=== PATIENT | female | born 1995 | race Caucasian/White ===

== ENCOUNTER 2018-06-11 15:13 | Outpatient (CLI) | payer OTHER ==
--- NOTE | 2018-06-12 08:10 | MRI ---
MR CHEST WITH AND WITHOUT CONTRAST: INDICATION: Injury to the left brachial plexus. TECHNIQUE: Multiplanar multisequence MR images were obtained of the upper left torso in the region of the brachi al plexus with and without contrast. Patient received 13 cc of MultiHance for the examination. Comparison is made with the prior exam dated 01/14/2016. FINDINGS: There is postsurgical change of a left first rib resection. There is appropriate flow void seen withi n the left subclavian artery and vein. No lymphadenopathy or visualized mass is seen within the left supraclavicular, subclavicular or axillary regions. The left brachial plexus demonstrates normal signal intensity without abnormal enhancement. The musculature of the left shoulder girdle demonstrates an normal signal intensity involved. No bone marrow signal abnormality is evident. IMPRESSION: No suspicious signal abnormality or abnormal enhancement involving the left brachial plexus. Transcribed Date/Time: 06/12/2018 8:13 AM
== END 2018-06-11 15:14 | disposition home or self-care (01) ==
LOC: SCSMRI 15:13
PROVIDERS: ATTEND Specialist
DX: S14.3XXD Injury of brachial plexus, subsequent encounter (principal)
CPT/HCPCS: 71552